=== PATIENT | female | born 1990 | race African-American/Black ===

== ENCOUNTER 2017-07-29 10:07 | Emergency (ER) | payer MEDICAID, OTHER ==
[~2017-07-29 10:07] MED LIST: IBUP600 PO; NIFE1TAB85 PO; OXYC1SOL5 PO
[2017-07-29 10:18] VITALS: BP 154/90; PULSE 113; RESP 20
[2017-07-29 10:34] LABS: BILIRUBIN, URINE MOD (NEG); BLOOD, URINE NEG (NEG); GLUCOSE,URINE NEG (NEG); KETONE, URINE 40 mg/dL (NEG); NITRITE,URINE NEG (NEG); URINE LEUKOCYTE ESTERASE NEG (NEG)
[2017-07-29 10:35] LABS: URINE COLOR AMBER (YELLW/STRAW)
[2017-07-29 10:41] LABS: BACTERIA, URINE RARE /hpf; MUCUS URINE MOD /lpf (OCC); SQUAMOUS EPITHELIAL CELL URINE >8 /hpf (0-5); WBC, URINE 0-2 /hpf (0-5)
[2017-07-29 10:58] VITALS: BP 156/88; PULSE 120; RESP 19; TEMP 98.7; O2SAT 99
--- NOTE | 2017-07-29 11:09 | PD ---
HPI Chief Complaint: GI Complaint Time Seen by Provider: 10:54 Travel History International Travel<30 days: No Contact w/Intl Traveler<30days: No Traveled to known affect area: No History of Present Illness HPI 27yo F with no significant PMH presents to the ED with c/o nausea and vomiting for 5 days. Pt has also been having left sided back pain that is worst with movement and vomiting. Feels chills but no documented fever. Denies any chest pain, sob, abdominal pain, vaginal bleeding or discharge. Urine positive here and pt did not know this prior to today. LMP is 06/06/17 so pt is [id number] by LMP. PFSH Past Medical History Diminished Hearing: No Glaucoma: Yes Immunizations Current: Yes Tetanus Vaccination: < 5 Years Influenza Vaccination: No ?: Unknown LMP: 06/06/17 : 3 Para: 2 : 1 Social History Alcohol Use: Yes (occ) Tobacco Use: No Substance Use: No Allergies-Medications (Allergen,Severity, Reaction): Coded Allergies: No Known Allergies (Verified , 10/11/15) Reported Meds & Prescriptions Reported Meds & Active Scripts Active Reglan (Metoclopramide HCl) 10 Mg Tab 10 Mg PO QID 7 Days Pyridoxine (Pyridoxine HCl) 25 Mg Tab 25 Mg PO Q8HR PRN 7 Days Review of Systems Except as stated in HPI: all other systems reviewed are Neg Physical Exam Narrative GENERAL: 27yo F in mild distress. SKIN: Focused skin assessment warm/dry. HEAD: Atraumatic. Normocephalic. EYES: Pupils equal and round. No scleral icterus. No injection or drainage. ENT: No nasal bleeding or discharge. Mucous membranes pink and moist. NECK: Trachea midline. No JVD. CARDIOVASCULAR: Tachycardic No murmur appreciated. RESPIRATORY: No accessory muscle use. Clear to auscultation. Breath sounds equal bilaterally. GASTROINTESTINAL: Abdomen soft, non-tender, nondistended. No rebound tenderness or guarding. PELVIC: MUSCULOSKELETAL: No obvious deformities. No clubbing. No cyanosis. No edema. NEUROLOGICAL: Awake and alert. No obvious cranial nerve deficits. Motor grossly within normal limits. Normal speech. PSYCHIATRIC: Appropriate mood and affect; insight and judgment normal. Data Data Last Documented VS Vital Signs Date Time Temp Pulse Resp B/P (MAP) Pulse Ox O2 Delivery O2 Flow Rate FiO2 5/13/18 15:01 86 16 114/72 (86) 99 Room Air 07/29/17 10:58 98.7 Orders Orders Urinalysis - C+S If Indicated (07/29/17 10:17) Ed Urine Pregnancytest Poc (07/29/17 10:17) Complete Blood Count With Diff (07/29/17 11:03) Basic Metabolic Panel (Bmp) (07/29/17 11:03) Beta Hcg (Quant/Titer) (07/29/17 11:03) Metoclopramide Inj (Reglan Inj) (07/29/17 11:15) Sodium Chlor 0.9% 1000 Ml Inj (Ns 1000 M (07/29/17 11:15) Ceftriaxone Inj (Rocephin Inj) (07/29/17 11:15) Acetaminophen (Tylenol) (07/29/17 11:15) Ed Poc Ultrasound (07/29/17 ) Potassium Chloride (Kcl) (07/29/17 12:00) Ondansetron Odt (Zofran Odt) (07/29/17 12:45) Sodium Chlor 0.9% 1000 Ml Inj (Ns 1000 M (07/29/17 13:00) Gc And Chlamydia Pcr (07/29/17 13:02) Wet Prep Profile (07/29/17 13:02) Pyridoxine (Vitamin B6) (07/29/17 14:15) Labs Laboratory Tests Test 07/29/17 10:30 07/29/17 11:07 07/29/17 13:00 Urine Collection Type VOIDED Urine Color VIK Urine Turbidity SL CLOUDY Urine pH 6.0 Urine Specific [place] GREATER/EQUAL 1.030 Urine Protein 30 mg/dL Urine Glucose (UA) NEG mg/dL Urine Ketones 40 mg/dL Urine Occult Blood NEG Urine Nitrite NEG Urine Bilirubin MOD Urine Urobilinogen 2.0 MG/DL Urine Leukocyte Esterase NEG Urine WBC 0-2 /hpf Urine Squamous Epithelial Cells >8 /hpf Urine Bacteria RARE /hpf Urine Mucus MOD /lpf Microscopic Urinalysis Comment CULT NOT INDICATED White Blood Count 5.7 TH/MM3 Red Blood Count 4.56 MIL/MM3 Hemoglobin 13.4 GM/DL Hematocrit 40.8 % Mean Corpuscular Volume 89.5 FL Mean Corpuscular Hemoglobin 29.3 PG Mean Corpuscular Hemoglobin Concent 32.7 % Red Cell Distribution Width 12.1 % Platelet Count 335 TH/MM3 Mean Platelet Volume 8.2 FL Neutrophils (%) (Auto) 69.4 % Lymphocytes (%) (Auto) 17.9 % Monocytes (%) (Auto) 11.8 % Eosinophils (%) (Auto) 0.3 % Basophils (%) (Auto) 0.6 % Neutrophils # (Auto) 4.0 TH/MM3 Lymphocytes # (Auto) 1.0 TH/MM3 Monocytes # (Auto) 0.7 TH/MM3 Eosinophils # (Auto) 0.0 TH/MM3 Basophils # (Auto) 0.0 TH/MM3 CBC Comment DIFF FINAL Differential Comment Blood Urea Nitrogen 10 MG/DL Creatinine 0.61 MG/DL Random Glucose 98 MG/DL Calcium Level 9.4 MG/DL Sodium Level 134 MEQ/L Potassium Level 3.0 MEQ/L Chloride Level 97 MEQ/L Carbon Dioxide Level 26.8 MEQ/L Anion Gap 10 MEQ/L Estimat Glomerular Filtration Rate 142 ML/MIN Human Chorionic Gonadotropin, Quant 782430 MIU/ML Clue Cells (Wet Prep) NONE SEEN Vaginal Trichomonas (Wet Prep) NONE SEEN Vaginal Yeast (Wet Prep) NONE SEEN MDM Medical Decision Making Medical Screen Exam Complete: Yes Emergency Medical Condition: Yes Interpretation(s) EKG: Sinus tachycardia at 107bpm. Normal axis. No ST segment elevation or depression. TWI III. Differential Diagnosis Hyperemesis gravidarum vs. dehydration vs. musculoskeletal pain vs. pyelonephritis Narrative Course 27yo F who just found out she is is here with nausea and vomiting. Also with some left sided back pain. No red flags. Pt said she had bad vomiting with her previous pregnancies as well. Labs reviewed, no leukocytosis. H/H normal. [facility] [place] [id number]. Mild hypokalemia at 3.0, replaced orally. UA showed rare bacteria. +Ketone. Culture is not indicated but since pt is , will still treat bacteriuria. Pt given ceftriaxone, reglan and NS IVF. Pt reevaluated at bedside and was still vomiting so given zofran and vitamin B5 and another liter of NS IVF. Wet prep negative. Bedside US showed IUP with +FHR. Pt has no abdominal pain. Pt given acetaminophen and back pain has improved. Pt reevaluated at bedside and no longer nauseous. She is tolerating PO. Return precautions given. Procedures Procedure Narrative Emergency Department Pelvic ultrasound was performed with patient consent. The curvilinear probe was used in the transverse and sagittal views within the suprapubic region revealing single intrauterine . heart rate was 167bpm. Diagnosis Primary Impression: Hyperemesis gravidarum Patient Instructions: General Instructions Departure Forms: Tests/Procedures Additional Instructions: Please follow up with your OBGYN as soon as possible. Return to the ED if symptoms worsen. Med/Other Pt SpecificInfo: Prescription(s) given Scripts Metoclopramide (Reglan) 10 Mg Tab 10 MG PO QID for Vomiting for 7 Days, #28 TAB 0 Refills Prov: Tejal Santos DO 07/29/17 Pyridoxine (Pyridoxine) 25 Mg Tab 25 MG PO Q8HR Y for VOMITING for 7 Days, #30 TAB 0 Refills Prov: Tejal Santos DO 07/29/17 Disposition: 01 DISCHARGE HOME Condition: Stable Tejal Santos DO July 29, 2017 11:09
[2017-07-29] MEDS ORDERED: METOCLOPRAMIDE INJ 10 MG in SODIUM CHLORIDE 0.9% INJ 50 ML IV ONE (11:15)
[2017-07-29] MEDS ORDERED: cefTRIAXone INJ 1,000 MG in SODIUM CHLORIDE 0.9% INJ 100 ML IV ONE (11:15)
[2017-07-29] MEDS ORDERED: ACETAMINOPHEN 325 MG TAB PO ONE (11:15)
[2017-07-29] MEDS ORDERED: SODIUM CHLOR 0.9% 1000 ML INJ 1,000 ML IV ONE ×2 (11:15→13:00)
[2017-07-29 11:18] LABS: BASOPHIL % 0.6 % (0.0-2.0); EOSINOPHIL % 0.3 % (0.0-4.0); HEMATOCRIT 40.8 % (35.0-46.0); HEMOGLOBIN 13.4 GM/DL (11.6-15.3); LYMPH % 17.9 % (9.0-44.0); MEAN CELL VOLUME 89.5 FL (80.0-100.0); MEAN CORPUSCULAR HEMOGLOBIN 29.3 PG (27.0-34.0); MEAN CORPUSCULAR HGB CONC 32.7 % (32.0-36.0); MEAN PLATELET VOLUME 8.2 FL (7.0-11.0); MONO % 11.8 % (0.0-8.0); MONOCYTE # 0.7 TH/MM3 (0-0.9); NEUT % 69.4 % (16.0-70.0); PLATELET COUNT 335 TH/MM3 (150-450); RED BLOOD COUNT 4.56 MIL/MM3 (4.00-5.30); RED CELL DISTRIBUTION WIDTH 12.1 % (11.6-17.2); WHITE BLOOD COUNT 5.7 TH/MM3 (4.0-11.0)
[2017-07-29 11:29] LABS: BICARBONATE 26.8 MEQ/L (21.0-32.0); CALCIUM 9.4 MG/DL (8.5-10.1)
[2017-07-29 11:33] LABS: CREATININE 0.61 MG/DL (0.50-1.00)
[2017-07-29] MEDS ORDERED: POTASSIUM CHLORIDE 20 MEQ CONTROLLED RELEASE TAB PO ONE (12:00)
[2017-07-29 12:15] VITALS: BP 144/85; PULSE 108; RESP 18; O2SAT 100
[2017-07-29] MEDS ORDERED: ONDANSETRON ODT 4 MG TAB PO ONE (12:45)
[2017-07-29 14:10] VITALS: BP 149/76; PULSE 86; RESP 16; O2SAT 98
[2017-07-29] MEDS ORDERED: PYRIDOXINE HCL 50 MG TAB PO ONE (14:15)
[2017-07-29 15:01] VITALS: BP 114/72; PULSE 86; RESP 16; O2SAT 99
[2017-07-29] MEDS ORDERED: PYRI25TA2 PO (15:42)
[2017-07-29] MEDS ORDERED: REGL10TA5 PO (15:42)
[2017-07-29 16:05] VITALS: BP 125/77
== END 2017-07-29 16:00 | disposition home or self-care (01) ==
LOC: PHED 10:07
DX: O21.0 Mild hyperemesis gravidarum (principal); O99.89 Other specified diseases and conditions complicating pregnancy, childbirth and the puerperium; H40.9 Unspecified glaucoma; Z3A.01 Less than 8 weeks gestation of pregnancy
CPT/HCPCS: 80048; 81001; 84702; 84703; 85025; 87210; 87491; 87591; 96361; 96365; 99284; J0696; J2765; J7030